=== PATIENT | male | born 1960 | race Caucasian/White ===

== ENCOUNTER → 2019-12-07 | Outpatient (CLI) | payer BC ==
[~2019-12-07] MED LIST: AMOX875 PO; LORA2 PO; LORTAB 7.5-3251 EACH PO; PRED20 PO; Percocet 5-3251 EACH PO; REFRESH OPTIVE1 EACH OP; Sudafed 12 Hou120 MG PO; TRAZ100 PO; TRAZODONE; VALACYCLOVIR1000 MG PO; ZOLP10 PO
[2019-12-08 17:09] LABS: U Amphetamine Screen Not Detected; U Barbituate Screen Not Detected; U Benzodiazapine Screen Not Detected; U Buprenorphine Screen Not Detected; U Cannabinoids Screen Not Detected; U Cocaine Screen Not Detected; U Methadone Screen Not Detected; U Methamphetamine Screen Not Detected; U Opiates Screen Not Detected; U Oxycodone Screen Not Detected; U Phencyclidine Screen Not Detected; U Propoxyphene Screen Not Detected
== END | disposition home or self-care (01) ==
LOC: LAB 15:25 → LAB SHORT 15:25
PROVIDERS: Family Medicine
DX: Z51.81 Encounter for therapeutic drug level monitoring (principal); Z79.891 Long term (current) use of opiate analgesic

== ENCOUNTER 2021-03-24 00:43 | Emergency (ER) | payer BC ==
[~2021-03-24] VITALS: Ht 165.1 cm; Wt 81.7 kg
[2021-03-24 01:08] LABS: PCO2 Arterial 35.2 mmHg (35-45); PO2 Arterial 103 mmHg (80-100)
[2021-03-24 01:13] LABS: BASOPHILS ABSOLUTE AUTO 0.08 K/mm3 (0.00-0.23); BASOPHILS PERCENT AUTO 1 % (0-2); EOSINOPHILS ABSOLUTE AUTO 0.34 K/mm3 (0.00-0.68); EOSINOPHILS PERCENT AUTO 4 % (0-6); Hematocrit 40.7 % (37.0-53.0); Hemoglobin 13.8 g/dL (13.5-17.5); IMMATURE GRAN ABSOLUTE AUTO 0.05 K/mm3 (0.00-0.10); IMMATURE GRAN PERCENT AUTO 1 % (0-1); LYMPHOCYTES ABSOLUTE AUTO 4.11 K/mm3 (0.84-5.20); LYMPHOCYTES PERCENT AUTO 44 % (21-46); MONOCYTES ABSOLUTE AUTO 0.86 K/mm3 (0.16-1.47); MONOCYTES PERCENT AUTO 9 % (4-13); Mean Corpuscular HGB 30.7 pg (26.0-34.0); Mean Corpuscular HGB Conc 33.9 g/dL (31.5-36.5); Mean Corpuscular Volume 91 fL (80-100); Mean Platelet Volume 9.4 fL (9.1-12.4); NEUTROPHILS PERCENT AUTO 42 % (41-73); Platelet Count 253 K/mm3 (150-400); RDW Coefficient Variation 12.9 % (11.7-14.2); RDW Standard Deviation 42.5 fL (35.1-46.3); Red Blood Cell Count 4.49 M/mm3 (4.30-5.90); White Blood Cell Count 9.34 K/mm3 (4.00-11.30)
[2021-03-24] MEDS ORDERED: LOSA25 PO (01:23)
[2021-03-24] MEDS ORDERED: AMLODIPINE BES2.5 MG PO (01:23)
[2021-03-24 01:32] LABS: Alanine Aminotransfer (ALT/SGP 50 U/L (12-78); Albumin, Blood 3.6 g/dL (3.4-5.0); Albumin/Globulin Ratio 1.1 (0.8-1.8); Alk Phos 82 U/L (50-136); Anion Gap 9 mmol/L (6-16); Aspartate Aminotrans (AST/SGOT 24 U/L (12-37); Bilirubin, Total 0.3 mg/dL (0.1-1.0); Blood Urea Nitrogen 9 mg/dL (8-24); Bun/Creatinine Ratio 7.8 (12.0-20.0); CO2, Blood 23 mmol/L (21-32); Calcium, Blood 8.6 mg/dL (8.5-10.1); Chloride, Blood 108 mmol/L (98-108); Creatinine, Blood 1.15 mg/dL (0.60-1.20); Globulin, Blood 3.4 g/dL (2.2-4.0); Glomerular Filtration Rate >60 (60-); Glucose, Blood 133 mg/dL (70-99); Potassium, Blood 3.7 mmol/L (3.5-5.5); Sodium, Blood 140 mmol/L (136-145)
[2021-03-24 02:06] LABS: Influenza A, PCR NEGATIVE (NEGATIVE); Influenza B, PCR NEGATIVE (NEGATIVE); Resp Syncytial Virus, PCR NEGATIVE (NEGATIVE); SARS-Cov-2 (COVID-19) PCR, MMC NEGATIVE (NEGATIVE)
[2021-03-24 03:38] LABS: Troponin I <0.015 ng/mL (0.000-0.040)
== END 2021-03-24 04:42 | disposition home or self-care (01) ==
LOC: ER 00:43
PROVIDERS: Emergency Medicine
DX: R06.02 Shortness of breath (principal); E86.0 Dehydration; I10 Essential (primary) hypertension; Z20.822 Contact with and (suspected) exposure to COVID-19; Z79.52 Long term (current) use of systemic steroids; Z79.899 Other long term (current) drug therapy
CPT/HCPCS: 0241U; 36415; 36600; 71045; 80053; 82803; 83605; 83880; 84484; 85025; 85379; 93005; 93010; 94644; 96360; 96361; 99285-25; J7030

== ENCOUNTER → 2021-12-02 | Outpatient (CLI) | payer BC ==
[~2021-12-02] MED LIST changes: +AMLODIPINE BES2.5 MG PO; +Amlodipine Bes2.5 MG PO; +LOSA25 PO; +LOSARTAN POTAS100 M1 PO; +QUET25 PO; +ROXICODONE5 MG PO; +TRAM50 PO; +Voltaren100 GM
[2021-12-02 14:36] LABS: U Amphetamine Screen Not Detected; U Barbituate Screen Not Detected; U Benzodiazapine Screen Not Detected; U Buprenorphine Screen Not Detected; U Cannabinoids Screen Not Detected; U Cocaine Screen Not Detected; U Methadone Screen Not Detected; U Methamphetamine Screen Not Detected; U Opiates Screen Not Detected; U Oxycodone Screen DETECTED; U Phencyclidine Screen Not Detected; U Propoxyphene Screen Not Detected
== END | disposition home or self-care (01) ==
LOC: LAB SHORT 11:55
PROVIDERS: Family Medicine
DX: Z51.81 Encounter for therapeutic drug level monitoring (principal); Z79.891 Long term (current) use of opiate analgesic

== ENCOUNTER → 2022-06-16 | Outpatient (CLI) | payer BC, OTHER ==
[2022-06-16 16:45] LABS: U Amphetamine Screen Not Detected; U Oxycodone Screen DETECTED
[2022-06-16 16:46] LABS: U Barbituate Screen Not Detected; U Benzodiazapine Screen Not Detected; U Buprenorphine Screen Not Detected; U Cannabinoids Screen Not Detected; U Cocaine Screen Not Detected; U Methadone Screen Not Detected; U Methamphetamine Screen Not Detected; U Opiates Screen Not Detected; U Phencyclidine Screen Not Detected; U Propoxyphene Screen Not Detected
== END | disposition home or self-care (01) ==
LOC: LAB SHORT 13:30 → LAB 13:30
PROVIDERS: Family Medicine
DX: Z51.81 Encounter for therapeutic drug level monitoring (principal); Z79.899 Other long term (current) drug therapy

== ENCOUNTER 2022-06-27 07:04 | Emergency (ER) | payer BC, OTHER ==
[~2022-06-27] VITALS: Ht 172.7 cm; Wt 108.9 kg
[2022-06-27 07:54] LABS: Source, Urine Clean Catch
[2022-06-27 08:04] LABS: Appearance, Urine Clear (Clear); Bilirubin, Urine Neg (Neg); Blood, Urine Neg (Neg); Color, Urine Yellow (P-Yellow); Glucose Qualitative, Urine Neg (Neg); Ketones, Urine Neg (Neg); Leukocyte Esterase, Urine Neg (Neg); Nitrite, Urine Neg (Neg); Protein, Urine Neg (Neg); Urobilinogen, Urine NORM (Normal)
[2022-06-27] MEDS ORDERED: Cyclobenzaprine5 MG PO (08:53)
[2022-06-29] MEDS ORDERED: CEPH500 PO (23:45)
[2022-06-30] MEDS ORDERED: BISA5EC PO (00:59)
[2022-06-30] MEDS ORDERED: MAGCIT300 PO (00:59)
== END 2022-06-27 09:15 | disposition home or self-care (01) ==
LOC: ER 07:04
PROVIDERS: Emergency Medicine
DX: M54.50 Low back pain, unspecified (principal); I10 Essential (primary) hypertension; Z88.6 Allergy status to analgesic agent; Z88.8 Allergy status to other drugs, medicaments and biological substances; Z79.899 Other long term (current) drug therapy
CPT/HCPCS: 81003; A9270

== ENCOUNTER 2022-07-01 08:46 | Emergency (ER) | payer BC, OTHER ==
[~2022-07-01] VITALS: Ht 172.7 cm; Wt 108.9 kg
[~2022-07-01 08:46] MED LIST changes: +BISA5EC PO; +CEPH500 PO; +Cyclobenzaprine5 MG PO; +MAGCIT300 PO
[2022-07-01 10:03] LABS: BASOPHILS ABSOLUTE AUTO 0.04 K/mm3 (0.00-0.23); BASOPHILS PERCENT AUTO 0 % (0-2); EOSINOPHILS ABSOLUTE AUTO 0.12 K/mm3 (0.00-0.68); EOSINOPHILS PERCENT AUTO 1 % (0-6); Hematocrit 40.7 % (37.0-53.0); Hemoglobin 13.7 g/dL (13.5-17.5); IMMATURE GRAN ABSOLUTE AUTO 0.03 K/mm3 (0.00-0.10); IMMATURE GRAN PERCENT AUTO 0 % (0-1); LYMPHOCYTES ABSOLUTE AUTO 1.71 K/mm3 (0.84-5.20); LYMPHOCYTES PERCENT AUTO 17 % (21-46); MONOCYTES ABSOLUTE AUTO 1.03 K/mm3 (0.16-1.47); MONOCYTES PERCENT AUTO 10 % (4-13); Mean Corpuscular HGB 30.8 pg (26.0-34.0); Mean Corpuscular HGB Conc 33.7 g/dL (31.5-36.5); Mean Corpuscular Volume 92 fL (80-100); Mean Platelet Volume 9.7 fL (9.1-12.4); NEUTROPHILS ABSOLUTE AUTO 7.02 K/mm3 (1.96-9.15); NEUTROPHILS PERCENT AUTO 71 % (41-73); Platelet Count 298 K/mm3 (150-400); RDW Coefficient Variation 12.6 % (11.7-14.2); RDW Standard Deviation 42.3 fL (35.1-46.3); Red Blood Cell Count 4.45 M/mm3 (4.30-5.90); White Blood Cell Count 9.95 K/mm3 (4.00-11.30)
[2022-07-01 10:42] LABS: Albumin, Blood 3.4 g/dL (3.4-5.0); Albumin/Globulin Ratio 0.9 (0.8-1.8); Bun/Creatinine Ratio 12.8 (12.0-20.0); C-REACTIVE PROTEIN, EXT RANGE 6.89 mg/dL (0.000-0.300); Calcium, Blood 8.5 mg/dL (8.5-10.1); Creatinine, Blood 0.78 mg/dL (0.60-1.20); Globulin, Blood 3.8 g/dL (2.2-4.0); Potassium, Blood 4.9 mmol/L (3.5-5.5); Total Protein, Blood 7.2 g/dL (6.4-8.2)
[2022-07-01] MEDS ORDERED: Enulose10 GM/15 M PO (12:03)
== END 2022-07-01 12:47 | disposition home or self-care (01) ==
LOC: ER 08:46
PROVIDERS: Physician Assistant
DX: R10.9 Unspecified abdominal pain (principal); K59.00 Constipation, unspecified; I10 Essential (primary) hypertension; Z88.6 Allergy status to analgesic agent; Z88.8 Allergy status to other drugs, medicaments and biological substances; Z79.899 Other long term (current) drug therapy
CPT/HCPCS: 74177; 80053; 83690; 85025; 86140; J1170; Q9967

== ENCOUNTER 2022-07-30 03:02 | Day surgery (SDC) | payer BC, OTHER ==
[~2022-07-30 03:02] MED LIST changes: +Enulose10 GM/15 M PO
[2022-07-31] MEDS ORDERED: MULTI-VITAMIN1 EAC2 PO (08:49)
[2022-07-31] MEDS ORDERED: PREG100 PO (08:50)
[2022-07-31] MEDS ORDERED: THERA-D2000 UNIT PO (08:51)
[2022-07-31] MEDS ORDERED: CEFTRIAXONE2 G1 IV (09:20)
== END 2022-07-30 23:08 | disposition home or self-care (01) ==
LOC: ATC 03:02
DX: G06.2 Extradural and subdural abscess, unspecified (principal); I10 Essential (primary) hypertension
CPT/HCPCS: J0696

== ENCOUNTER 2022-07-31 08:20 | Day surgery (SDC) | payer BC, OTHER ==
[2022-07-31] MEDS ORDERED: MULTI-VITAMIN1 EAC2 PO (08:49)
[2022-07-31] MEDS ORDERED: PREG100 PO (08:50)
[2022-07-31] MEDS ORDERED: THERA-D2000 UNIT PO (08:51)
[2022-07-31] MEDS ORDERED: CEFTRIAXONE2 G1 IV (09:20)
== END 2022-07-31 08:42 | disposition home or self-care (01) ==
LOC: ATC 08:20
DX: G06.2 Extradural and subdural abscess, unspecified (principal); I10 Essential (primary) hypertension; Z88.6 Allergy status to analgesic agent; Z79.899 Other long term (current) drug therapy
CPT/HCPCS: 96374; J0696

== ENCOUNTER 2022-08-01 00:44 | Day surgery (SDC) | payer BC, OTHER ==
[~2022-08-01 00:44] MED LIST changes: +CEFTRIAXONE2 G1 IV; +MULTI-VITAMIN1 EAC2 PO; +PREG100 PO; +THERA-D2000 UNIT PO
== END 2022-08-01 23:07 | disposition home or self-care (01) ==
LOC: WOUND 00:44
DX: T81.31XA Disruption of external operation (surgical) wound, not elsewhere classified, initial encounter (principal); Y83.8 Other surgical procedures as the cause of abnormal reaction of the patient, or of later complication, without mention of misadventure at the time of the procedure; I10 Essential (primary) hypertension

== ENCOUNTER 2022-08-02 02:36 | Day surgery (SDC) | payer BC, OTHER | END 2022-08-02 22:39 | disposition home or self-care (01) | LOC: ATC 02:36 | DX: G06.1 Intraspinal abscess and granuloma (principal); I10 Essential (primary) hypertension; Z88.6 Allergy status to analgesic agent | CPT/HCPCS: J0696 ==

== ENCOUNTER 2022-08-03 00:37 | Day surgery (SDC) | payer BC, OTHER | END 2022-08-03 11:10 | disposition home or self-care (01) | LOC: ATC 00:37 | DX: G06.1 Intraspinal abscess and granuloma (principal); I10 Essential (primary) hypertension; F32.A Depression, unspecified | CPT/HCPCS: 96365; J0696 ==

== ENCOUNTER 2022-08-04 09:41 | Day surgery (SDC) | payer BC, OTHER ==
[2022-08-04 10:50] LABS: BASOPHILS PERCENT AUTO 1 % (0-2); EOSINOPHILS ABSOLUTE AUTO 0.45 K/mm3 (0.00-0.68); EOSINOPHILS PERCENT AUTO 5 % (0-6); Hematocrit 37.7 % (37.0-53.0); Hemoglobin 12.8 g/dL (13.5-17.5); IMMATURE GRAN ABSOLUTE AUTO 0.28 K/mm3 (0.00-0.10); IMMATURE GRAN PERCENT AUTO 3 % (0-1); LYMPHOCYTES ABSOLUTE AUTO 2.44 K/mm3 (0.84-5.20); LYMPHOCYTES PERCENT AUTO 26 % (21-46); MONOCYTES ABSOLUTE AUTO 1.28 K/mm3 (0.16-1.47); MONOCYTES PERCENT AUTO 14 % (4-13); Mean Corpuscular HGB 29.6 pg (26.0-34.0); Mean Corpuscular Volume 87 fL (80-100); Mean Platelet Volume 9.6 fL (9.1-12.4); NEUTROPHILS ABSOLUTE AUTO 4.93 K/mm3 (1.96-9.15); NEUTROPHILS PERCENT AUTO 52 % (41-73); Platelet Count 461 K/mm3 (150-400); RDW Coefficient Variation 12.3 % (11.7-14.2); RDW Standard Deviation 39.8 fL (35.1-46.3); Red Blood Cell Count 4.33 M/mm3 (4.30-5.90); White Blood Cell Count 9.48 K/mm3 (4.00-11.30)
[2022-08-04 10:59] LABS: C-REACTIVE PROTEIN, EXT RANGE 12.8 mg/dL (0.000-0.300)
[2022-08-04 11:01] LABS: Bun/Creatinine Ratio 8.7 (12.0-20.0); Calcium, Blood 9.6 mg/dL (8.5-10.1); Creatinine, Blood 0.92 mg/dL (0.60-1.20); Potassium, Blood 3.2 mmol/L (3.5-5.5)
--- NOTE | 2022-08-04 11:18 | NUR ---
LAB RESULTS FROM TODAY FAXED TO DR. WILBURN'S OFFICE.
== END 2022-08-04 10:20 | disposition home or self-care (01) ==
LOC: ATC 09:41
PROVIDERS: Specialist
DX: G06.2 Extradural and subdural abscess, unspecified (principal); I10 Essential (primary) hypertension; Z79.899 Other long term (current) drug therapy
CPT/HCPCS: 80048; 85025; 86140; J0696

== ENCOUNTER 2022-08-05 00:30 | Day surgery (SDC) | payer BC, OTHER | END 2022-08-05 09:40 | disposition home or self-care (01) | LOC: ATC 00:30 | DX: G06.2 Extradural and subdural abscess, unspecified (principal); I10 Essential (primary) hypertension; Z88.6 Allergy status to analgesic agent; Z79.899 Other long term (current) drug therapy | CPT/HCPCS: 96365; J0696 ==

== ENCOUNTER 2022-08-06 06:22 | Day surgery (SDC) | payer BC, OTHER | END 2022-08-06 10:33 | disposition home or self-care (01) | LOC: ATC 06:22 | DX: G06.1 Intraspinal abscess and granuloma (principal); I10 Essential (primary) hypertension; Z88.6 Allergy status to analgesic agent | CPT/HCPCS: 96365; J0696 ==

== ENCOUNTER 2022-08-07 00:14 | Day surgery (SDC) | payer BC, OTHER ==
[2022-08-07 14:23] LABS: C DIFFICILE DNA POSITIVE (Negative)
== END 2022-08-07 10:56 | disposition home or self-care (01) ==
LOC: ATC 00:14
PROVIDERS: Specialist
DX: G06.1 Intraspinal abscess and granuloma (principal); I25.2 Old myocardial infarction; I10 Essential (primary) hypertension; Z88.6 Allergy status to analgesic agent
CPT/HCPCS: 87324; 87493; 96365; J0696

== ENCOUNTER 2022-08-08 02:02 | Day surgery (SDC) | payer BC, OTHER | END 2022-08-08 23:16 | disposition home or self-care (01) | LOC: WOUND 02:02 | DX: T81.31XA Disruption of external operation (surgical) wound, not elsewhere classified, initial encounter (principal) ==

== ENCOUNTER 2022-08-09 10:04 | Day surgery (SDC) | payer BC, OTHER ==
[2022-08-10] MEDS ORDERED: Vancocin HCl125 MG PO (10:23)
== END 2022-08-09 10:25 | disposition home or self-care (01) ==
LOC: ATC 10:04
DX: G06.1 Intraspinal abscess and granuloma (principal); I10 Essential (primary) hypertension; Z88.6 Allergy status to analgesic agent
CPT/HCPCS: J0696

== ENCOUNTER 2022-08-10 10:05 | Day surgery (SDC) | payer BC, OTHER ==
[2022-08-10] MEDS ORDERED: Vancocin HCl125 MG PO (10:23)
== END 2022-08-10 10:21 | disposition home or self-care (01) ==
LOC: ATC 10:05
DX: G06.1 Intraspinal abscess and granuloma (principal); I10 Essential (primary) hypertension; Z88.6 Allergy status to analgesic agent
CPT/HCPCS: J0696

== ENCOUNTER 2022-08-11 00:37 | Day surgery (SDC) | payer BC, OTHER ==
[~2022-08-11 00:37] MED LIST changes: +Vancocin HCl125 MG PO
--- NOTE | 2022-08-11 11:33 | NUR ---
CONTACT ISOLATION MAINTAINED FOR C-DIFF.
[2022-08-11 12:00] LABS: BASOPHILS ABSOLUTE AUTO 0.02 K/mm3 (0.00-0.23); BASOPHILS PERCENT AUTO 0 % (0-2); EOSINOPHILS ABSOLUTE AUTO 0.12 K/mm3 (0.00-0.68); EOSINOPHILS PERCENT AUTO 1 % (0-6); Hematocrit 37.9 % (37.0-53.0); Hemoglobin 12.5 g/dL (13.5-17.5); IMMATURE GRAN ABSOLUTE AUTO 0.02 K/mm3 (0.00-0.10); IMMATURE GRAN PERCENT AUTO 0 % (0-1); LYMPHOCYTES ABSOLUTE AUTO 1.64 K/mm3 (0.84-5.20); LYMPHOCYTES PERCENT AUTO 16 % (21-46); MONOCYTES ABSOLUTE AUTO 0.97 K/mm3 (0.16-1.47); MONOCYTES PERCENT AUTO 10 % (4-13); Mean Corpuscular HGB 29.7 pg (26.0-34.0); Mean Corpuscular Volume 90 fL (80-100); Mean Platelet Volume 9.7 fL (9.1-12.4); NEUTROPHILS ABSOLUTE AUTO 7.36 K/mm3 (1.96-9.15); NEUTROPHILS PERCENT AUTO 73 % (41-73); Platelet Count 400 K/mm3 (150-400); RDW Coefficient Variation 12.7 % (11.7-14.2); Red Blood Cell Count 4.21 M/mm3 (4.30-5.90); White Blood Cell Count 10.13 K/mm3 (4.00-11.30)
[2022-08-11 12:33] LABS: Bun/Creatinine Ratio 15.7 (12.0-20.0); C-REACTIVE PROTEIN, EXT RANGE 10.4 mg/dL (0.000-0.300); Calcium, Blood 9.8 mg/dL (8.5-10.1); Creatinine, Blood 0.83 mg/dL (0.60-1.20); Potassium, Blood 4.1 mmol/L (3.5-5.5)
--- NOTE | 2022-08-11 15:28 | NUR ---
LAB RESULTS FROM TODAY FAXED TO DR. CANO'S OFFICE.
== END 2022-08-11 10:29 | disposition home or self-care (01) ==
LOC: ATC 00:37
PROVIDERS: Specialist
DX: G06.1 Intraspinal abscess and granuloma (principal); I10 Essential (primary) hypertension; Z88.6 Allergy status to analgesic agent
CPT/HCPCS: 80048; 85025; 86140; 96374; J0696

== ENCOUNTER 2022-08-11 01:12 | Day surgery (SDC) | payer BC, OTHER | END 2022-08-11 22:00 | disposition home or self-care (01) | LOC: WOUND 01:12 | DX: T81.31XA Disruption of external operation (surgical) wound, not elsewhere classified, initial encounter (principal) | CPT/HCPCS: G0463 ==

== ENCOUNTER 2022-08-12 01:19 | Day surgery (SDC) | payer BC, OTHER | END 2022-08-12 10:49 | disposition home or self-care (01) | LOC: ATC 01:19 | DX: G06.1 Intraspinal abscess and granuloma (principal); I10 Essential (primary) hypertension; Z88.6 Allergy status to analgesic agent | CPT/HCPCS: 96374; J0696 ==

== ENCOUNTER 2022-08-13 07:38 | Day surgery (SDC) | payer BC, OTHER | END 2022-08-13 23:42 | disposition home or self-care (01) | LOC: WOUND 07:38 | DX: S31.000A Unspecified open wound of lower back and pelvis without penetration into retroperitoneum, initial encounter (principal); I10 Essential (primary) hypertension; X58.XXXA Exposure to other specified factors, initial encounter | CPT/HCPCS: G0463 ==

== ENCOUNTER → 2022-11-26 | Outpatient (CLI) | payer BC, OTHER ==
[2022-11-26 16:10] LABS: U Amphetamine Screen Not Detected; U Barbituate Screen Not Detected; U Benzodiazapine Screen Not Detected; U Buprenorphine Screen Not Detected; U Cannabinoids Screen Not Detected; U Cocaine Screen Not Detected; U Methadone Screen Not Detected; U Methamphetamine Screen Not Detected; U Opiates Screen Not Detected; U Oxycodone Screen DETECTED; U Phencyclidine Screen Not Detected; U Propoxyphene Screen Not Detected
== END | disposition home or self-care (01) ==
LOC: LAB SHORT 14:15
PROVIDERS: Family Medicine
DX: Z51.81 Encounter for therapeutic drug level monitoring (principal); Z79.899 Other long term (current) drug therapy

== ENCOUNTER → 2023-03-26 | Outpatient (CLI) | payer BC, OTHER ==
[2023-03-26 17:01] LABS: U Amphetamine Screen Not Detected; U Barbituate Screen Not Detected; U Benzodiazapine Screen Not Detected; U Buprenorphine Screen Not Detected; U Cannabinoids Screen Not Detected; U Cocaine Screen Not Detected; U Methadone Screen Not Detected; U Methamphetamine Screen Not Detected; U Opiates Screen Not Detected; U Oxycodone Screen DETECTED; U Phencyclidine Screen Not Detected; U Propoxyphene Screen Not Detected
== END | disposition home or self-care (01) ==
LOC: LAB SHORT 10:30
PROVIDERS: Family Medicine
DX: Z51.81 Encounter for therapeutic drug level monitoring (principal); Z79.891 Long term (current) use of opiate analgesic

== ENCOUNTER → 2023-07-17 | Outpatient (CLI) | payer BC, OTHER ==
[2023-07-17 17:23] LABS: U Amphetamine Screen Not Detected; U Barbituate Screen Not Detected; U Benzodiazapine Screen Not Detected; U Buprenorphine Screen Not Detected; U Cannabinoids Screen Not Detected; U Cocaine Screen Not Detected; U Methadone Screen Not Detected; U Methamphetamine Screen Not Detected; U Opiates Screen Not Detected; U Oxycodone Screen DETECTED; U Phencyclidine Screen Not Detected; U Propoxyphene Screen Not Detected
== END ==
LOC: LAB SHORT 15:45 → LAB 15:45
PROVIDERS: Family Medicine
DX: Z51.81 Encounter for therapeutic drug level monitoring (principal); Z79.891 Long term (current) use of opiate analgesic